=== PATIENT | female | born 1955 | race Caucasian/White ===

== ENCOUNTER → 2018-01-09 | Day surgery (SDC) | payer OTHER ==
--- NOTE | 2018-01-05 07:50 | MH ---
cc: Dennis Oconnell MD DATE OF ADMISSION: 01/09/2018 Scheduled admission on 01/09 for cystoscopy and exam under anesthesia for urge incontinence and microhematuria. HISTORY OF PRESENT ILLNESS: The patient is a 62-year-old white female who has issues with urge incontinence, microhematuria. She cannot tolerate exam in office and is scheduled for above procedure. PAST MEDICAL HISTORY: Notable for adult onset diabetes, chronic pain syndrome, hypertension, hypercholesterolemia, COPD, traumatic brain injury with mild cognitive impairment and osteoarthritis. MEDICATIONS: Metformin 500 mg daily, olmesartan 40 mg daily, cyclobenzaprine 5 mg daily, albuterol inhaler p.r.n. ALLERGIES: SULFA AND PENICILLIN CAUSE SEVERE SKIN RASH. PAST SURGICAL HISTORY: Hysterectomy for uterine cancer, did not require any postoperative chemo or radiation. SOCIAL HISTORY: Does not smoke, use alcohol or drugs. FAMILY HISTORY: Noncontributory. OBSTETRICAL HISTORY: Noncontributory. REVIEW OF SYSTEMS: As above. No chest pain, orthopnea, PND. No nausea, vomiting or chills. No vaginal bleeding or discharge. Main issue is frequency and urgency of urination. PHYSICAL EXAMINATION: VITAL SIGNS: She is afebrile, vital signs stable. Height is 4 feet 11 inches, weight is 180, BMI is 36, blood pressure 160/90. GENERAL: The patient is alert and oriented, in no acute distress. No sign of cognitive dysfunction or depression. HEENT: Within normal limits. NECK: Supple. No JVD. CHEST: Clear. HEART: Regular rate and rhythm. ABDOMEN: Soft, nontender. No hepatosplenomegaly, mass or . PELVIC: Will be detailed under anesthesia. EXTREMITIES: rashes NEUROLOGIC: Nonfocal. No DVT signs. ASSESSMENT: The patient with urge incontinence, microhematuria, unable to tolerate exam in office. At this point, we are going to proceed with exam under anesthesia and cystoscopy. She is aware of the risks, benefits and alternatives of planned procedure. Also aware that her symptomatology may not be relieved by any of the procedures that we perform. Anticipate outpatient procedure. She will use Ancef 1 gram. She has used cephalosporins in the past without complication despite her ALLERGY TO PENICILLIN. Also, DVT prophylaxis with sequential compression device. MD TERESA Soto/MARYANA , 03:18 PM , 03:47 PM
[~2018-01-09] VITALS: Ht 160 cm; Wt 82.0 kg
[~2018-01-09] MED LIST: ACETAMINOPHEN 1000 MG/100 ML 100 ML IV ONE; ALBU0.08 NEB; CHLORHEXIDINE GLUCONATE 2 % 1 PACK (2 CLOTHS) TOPICAL PRN; CLAR10CA3 PO; DO NOT ADM ANY ANTICOAGULANT DRUGS PRN; ESTROGENS CONJUGATED VAG CREA 15 APPL/30 GM TUBE ONE; FLUORESCEIN SOD 10% SOLN 500 MG/5 ML AMP ONE; IBUP1TAB7 PO; KETOROLAC TROMETHAMINE 30 MG/ML (IVP) VIAL IV PUSH ONE; KETOROLAC TROMETHAMINE 60 MG/2 ML (IM) VIAL IM PRN; LACTATED RINGER'S 1000 ML IV PRN; LIDOCAINE 1%/EPINEPHrine 1:100,000 SOLN 50 ML VIAL ONE; LIDOCAINE HCL 1% PF 5 ML SYRINGE OTHER ONE; METF500T4 PO; METOPROLOL TARTRATE 25 MG TAB PO PRN; METOPROLOL TARTRATE 5 MG/5 ML VIAL IV PUSH ONE; OLME1TAB13 PO; ONDANSETRON HCL 4 MG/2 ML VIAL IV PUSH ONE; ONDANSETRON ODT 4 MG TAB PO PRN; POVIDONE IODINE 5% (ANTISEPSIS KIT) 4 APPLICATIONS EACH NARE PRN; PROPOFOL 200 MG/20 ML AMP IV ONE; ROCURONIUM INJ 50 MG/5 ML SYRINGE IV PUSH ONE; SODIUM CHLORID 0.9% 500 ML IV PRN; SUGAMMADEX SODIUM 200 MG/2 ML VIAL IV PUSH ONE; VENTAER INH; ceFAZolin 2 GM/DEX PREMIX 50 ML IV SCH; traMADol HCL 50 MG TAB PO PRN
[2018-01-09 09:27] VITALS: BP 151/74; PULSE 76; RESP 18; TEMP 98.1; O2SAT 98
--- NOTE | 2018-01-09 09:50 | MP ---
cc: Dennis Oconnell MD DATE OF OPERATION: 01/09/2018 PREOPERATIVE DIAGNOSIS: Microhematuria and urge incontinence. 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 PROCEDURE PERFORMED: 1. Diagnostic cystoscopy. 2. Vulvar biopsy. SURGEON: Dennis Oconnell MD. ANESTHESIA: General endotracheal. [employer]RO[employer] REPA[employer]MAN: [employer] staff x 1. FLUIDS: 1000 mL crystalloid. BLOOD LOSS: None. FINDINGS: External genitalia remarkably thickened plaques along the vulva bilaterally extending down to the perianal area. Pop-Q score Aa is -2, Ap is -2, point C is -8, total vaginal length is 8, genital hiatus is 4, perineal body is 8. Cystoscopy shows normal trigone, good coaptation of urethra, ureteral orifices patent x 2, dome and base of bladder normal. SPECIMENS: 1. Right perianal biopsy specimen. 2. Left vulvar specimen. COMPLICATIONS: None. DISPOSITION: To recovery room stable. COUNTS: Needle and sponge counts correct. DRAINS: None. ANTIBIOTIC PROPHYLAXIS: Ancef 2 grams. DVT PROPHYLAXIS: Sequential compression device. SUMMARY OF INDICATIONS FOR THE PROCEDURE: Patient with urge incontinence and microhematuria. The patient could not tolerate an examination in the office and opted for exam under anesthesia and cystoscopy. DESCRIPTION OF THE PROCEDURE: The patient was taken to the operating room theater, identified, prepped and draped in a fashion appropriate for the planned surgery. She was in the dorsal lithotomy position with careful attention paid to placement of legs in the stirrups to avoid undue stress to sense of neurovascular structures. The above findings noted. The bladder was inspected with a 17-Dominican bridge, a 70-degree scope. No significant findings other than perhaps maybe some mild trigonitis, but no frond-like lesions, no ulcerations. Urethra was normal with no sign of diverticula. There is significant evidence of vulvar dystrophy diffusely. The areas that appeared to be the most severe were biopsied representatively. The biopsy of the perianal area was somewhat more complicated and involved multilayer closure. The procedure was concluded. The patient transferred to the recovery room in stable condition. Dennis Oconnell MD CJS/CORTNEY , 09:23 AM , 09:50 AM
--- NOTE | 2018-01-10 08:22 | EKG ---
Date Performed: 01/09/2018 Time Performed: 06:43:14 PTAGE: 62 years EKG: Sinus rhythm NORMAL ECG NO PREVIOUS TRACING DOCTOR: Ivy Vega Interpretating Date/Time 01/10/2018 08:22:30
== END | disposition home or self-care (01) ==
LOC: HSDC 05:36
PROVIDERS: ATTEND Obstetrics & Gynecology Gynecology
DX: N90.4 Leukoplakia of vulva (principal); N39.41 Urge incontinence; R31.29 Other microscopic hematuria; L28.0 Lichen simplex chronicus; I10 Essential (primary) hypertension; J44.9 Chronic obstructive pulmonary disease, unspecified; E11.9 Type 2 diabetes mellitus without complications; E78.00 Pure hypercholesterolemia, unspecified; Z79.84 Long term (current) use of oral hypoglycemic drugs; Z88.0 Allergy status to penicillin; Z88.2 Allergy status to sulfonamides
CPT/HCPCS: 00910; 52000; 56605; 56606; 88304; 88305; 93005; J0131; J1885; J2405; J3010; J7120